=== PATIENT | female | born 1990 | race Two or more races ===

== ENCOUNTER 2020-07-21 10:07 | Outpatient (CLI) | payer BC | END 2020-07-21 10:08 | disposition home or self-care (01) | LOC: CSHCT 10:07 | PROVIDERS: ATTEND Family Medicine | DX: R10.30 Lower abdominal pain, unspecified (principal); R31.9 Hematuria, unspecified; Z90.49 Acquired absence of other specified parts of digestive tract; Z98.84 Bariatric surgery status | CPT/HCPCS: 74178 ==